=== PATIENT | male | born 1990 | race Caucasian/White ===

== ENCOUNTER 2018-05-16 02:11 | Emergency (ER) | payer OTHER ==
[2018-05-16] MEDS ORDERED: IBUPROFEN 800 MG TABLET PO STA (02:40)
[2018-05-16] MEDS ORDERED: ONDANSETRON ODT 4 MG TABLET TL STA (02:40)
--- NOTE | 2018-05-16 02:49 | ED Physician Documentation ---
PD HPI HEAD INJURY - Stated complaint Stated Complaint: HEAD INJURY - Chief complaint Chief Complaint: Heent - History obtained from History obtained from: Patient, Friend - History of Present Illness Mechanism of head injury: Fell Where head injury occurred: Other (ice skating) Timing - onset: How many hours ago (4) Pain level max: 8 Pain level now: 8 Location of injury: Back Quality of pain: Pain, Throbbing, Aching, Dull Associated symptoms: LOC (states doesn't think he lost consciousness), Nausea / vomiting (nausea, no vomiting). No: AMS, Amnesia, Neck pain, Paresthesias, Seizures, Ear drainage, Nasal drainage Symptoms improve with: Rest Symptoms worsen with: Palpation, Movement Contributing factors: No: Anticoagulated, Intoxicated Similar symptoms before: Has not had sx before Recently seen: Not recently seen Review of Systems Constitutional: denies: Fever, Chills GI: reports: Nausea. denies: Abdominal Pain, Vomiting Musculoskeletal: denies: Neck pain, Back pain Neurologic: reports: Headache. denies: Focal weakness, Numbness PD PAST MEDICAL HISTORY - Past Medical History Past Medical History: No - Past Surgical History Past Surgical History: No - Allergies Allergies/Adverse Reactions: Allergies Allergy/AdvReac Type Severity Reaction Status Date / Time No Known Drug Allergies Allergy Verified 05/16/18 02:23 - Social History Does the pt smoke?: No Smoking Status: Never smoker Does the pt drink ETOH?: No Does the pt have substance abuse?: No - Immunizations Immunizations are current?: Yes Immunizations: TDAP current <10years PD ED PE NORMAL - Vitals Vital signs reviewed: Yes - General General: Alert and oriented X 3, No acute distress, Well developed/nourished - HEENT HEENT: PERRL, Ears normal, Moist mucous membranes, Other (Abrasion to the occiput. Does have significant tenderness around the occiput. No palpable skull fractures. Small scalp hematoma) - Neck Neck: Supple, no meningeal sign, No bony TTP (No step-off or deformity) - Cardiac Cardiac: RRR, Strong equal pulses - Respiratory Respiratory: No respiratory distress, Clear bilaterally - Derm Derm: Warm and dry - Neuro Neuro: Alert and oriented X 3, java engineer 2-12 intact, No motor deficit, No sensory deficit, Normal speech Eye Opening: Spontaneous Motor: Obeys Commands Verbal: Oriented GCS Score: 15 - Psych Psych: Normal mood, Normal affect Results - Vitals Vitals: Vital Signs - 24 hr 05/16/18 05/16/18 02:20 04:50 Temperature 37.2 C Heart Rate 65 63 Respiratory 18 16 Rate Blood Pressure 135/80 H 122/68 O2 Saturation 100 100 Oxygen O2 Source Room air - Rads (name of study) Head CT Radiology: Prelim report reviewed, EMP read contemporaneously, See rad report (No acute abnormality) PD MEDICAL DECISION MAKING - ED course Complexity details: reviewed results, re-evaluated patient, considered differential, d/w patient ED course: Patient is a 27-year-old male who presents to the emergency department with a closed head injury. No acute findings on head CT. No palpable skull fracture. Appears to have a concussion however and will keep him out of work until his symptoms have resolved and he is released by his PCM. Abrasions were cleansed and bandaged. Patient and family counseled regarding signs and symptoms for which I believe and urgent re-evaluation would be necessary. Patient with good understanding of and agreement to plan and is comfortable going home at this time This document was made in part using voice recognition software. While efforts are made to proofread this document, sound alike and grammatical errors may occur. - Sepsis Event Vital Signs: Vital Signs - 24 hr 05/16/18 05/16/18 02:20 04:50 Temperature 37.2 C Heart Rate 65 63 Respiratory 18 16 Rate Blood Pressure 135/80 H 122/68 O2 Saturation 100 100 Oxygen O2 Source Room air Departure - Departure Disposition: 01 Home, Self Care Clinical Impression: Abrasion Head injury Qualifiers: Encounter type: initial encounter Qualified Code(s): S09.90XA - Unspecified injury of head, initial encounter Condition: Good Instructions: ED Head Injury Closed Follow-Up: your,doctor in 3 days. [Other] Comments: Return if you worsen. Your head CT is normal tonight. You may have headaches for the next several days[place] to work. Forms: Activity restrictions Discharge Date/Time: 05/16/18 04:55
--- NOTE | 2018-05-16 04:27 | CT Report ---
Reason: head injury, nausea Procedure Date: 05/16/2018 Accession Number: [id number] / [id number] Procedure: CT - Head W/O CPT Code: FULL RESULT: EXAM: CT HEAD EXAM DATE: 05/16/2018 03:32 AM. CLINICAL HISTORY: Head injury, nausea. COMPARISON: None. TECHNIQUE: Multiaxial CT images were obtained from the foramen magnum to the vertex. Reformats: Sagittal and coronal. IV contrast: None. In accordance with CT protocol optimization, one or more of the following dose reduction techniques were utilized for this exam: automated exposure control, adjustment of mA and/or KV based on patient size, or use of iterative reconstructive technique. FINDINGS: Parenchyma: No intraparenchymal hemorrhage. No evidence of mass, midline shift, or CT findings of infarction. Marina-white differentiation is distinct. Extraaxial Spaces: Normal for age. No subdural or epidural collections identified. Ventricles: Normal in size and position. Sinuses and Orbits: Imaged paranasal sinuses, orbits, and mastoids show no significant abnormality. Bones: No evidence of fracture or calvarial defect. Other: None. IMPRESSION: Normal head CT. RADIA
[2018-05-16] MEDS ORDERED: BACITRACIN OINT TOP ONE (04:36)
[2018-05-16 04:51] VITALS: BP 122/68
== END 2018-05-16 04:55 | disposition home or self-care (01) ==
LOC: ED 02:11
DX: S09.90XA Unspecified injury of head, initial encounter (principal); S00.01XA Abrasion of scalp, initial encounter; W18.30XA Fall on same level, unspecified, initial encounter; Y93.21 Activity, ice skating
CPT/HCPCS: 70450; 99283; A9270; Q0162

== ENCOUNTER 2019-08-07 14:00 | Emergency (ER) | payer OTHER ==
[2019-08-07 14:18] VITALS: BP 132/83
--- NOTE | 2019-08-07 15:06 | ED Physician Documentation ---
History of Present Illness - Stated complaint Stated Complaint: LT FINGER LAC - Chief complaint Chief Complaint: Laceration - History obtained from History obtained from: Patient - History of Present Illness Timing: Today Pain level max: 3 Pain level now: 3 - Additonal information Additional information: L middle finger laceration from kitchen knife. Better with pressure. Worse with movement. Tetanus is up-to-date. Patient is right-handed Review of Systems Constitutional: denies: Fever, Chills Neurologic: denies: Focal weakness PD PAST MEDICAL HISTORY - Past Medical History Past Medical History: No - Past Surgical History Past Surgical History: No - Present Medications Home Medications: Ambulatory Orders Medication Instructions Recorded Confirmed No Known Home Medications 08/07/19 08/07/19 - Allergies Allergies/Adverse Reactions: Allergies Allergy/AdvReac Type Severity Reaction Status Date / Time No Known Drug Allergies Allergy Verified 08/07/19 14:18 - Social History Does the pt smoke?: No Smoking Status: Never smoker Does the pt drink ETOH?: No Does the pt have substance abuse?: No - Immunizations Immunizations are current?: Yes Immunizations: TDAP current <10years PD ED PE NORMAL - Vitals Vital signs reviewed: Yes - General General: Alert and oriented X 3, No acute distress - Derm Derm: Warm and dry - Extremities Extremities: Other (Left middle finger -Distal phalanx, 1 cm laceration to the lateral aspect. The nail is not involved. Neurovascular intact.) - Neuro Neuro: Alert and oriented X 3 Results - Vitals Vitals: Vital Signs - 24 hr 08/07/19 14:14 Temperature 36.8 C Heart Rate 70 Respiratory 16 Rate Blood Pressure 132/83 H O2 Saturation 98 Oxygen O2 Source Room air Procedures - Laceration (location) Left middle finger Length in cm: 1 Wound type: Linear, Superficial, Clean Neurovascular status: Sensory intact, Motor intact, Vascular intact Tendon involvement: Tendon intact Wound Preparation: Irrigated copiously NS Skin layer closure: Dermabond, Other (T ring closure) Other: Patient tolerated well, No complications, Neurovascular intact, Tetanus UTD Complexity: Simple PD MEDICAL DECISION MAKING - ED course Complexity details: considered differential, d/w patient ED course: Laceration repaired. Tolerated well. Warnings of infection and instructions on wound care given at bedside. Also counseled on how to minimize scarring. Patient counseled regarding signs and symptoms for which I believe and urgent re-evaluation would be necessary. Patient with good understanding of and agreement to plan and is comfortable going home at this time This document was made in part using voice recognition software. While efforts are made to proofread this document, sound alike and grammatical errors may occur. Departure - Departure Disposition: 01 Home, Self Care Clinical Impression: Finger laceration Qualifiers: Encounter type: initial encounter Finger: middle finger Damage to nail status: without damage Foreign body presence: without foreign body Laterality: left Qualified Code(s): S61.213A - Laceration without foreign body of left middle finger without damage to nail, initial encounter Condition: Good Instructions: ED Laceration Ext Skin Glue Follow-Up: Your,doctor in 1 week if not better [Other] Comments: Return if you worsen including redness, swelling or drainage from the wound. Do not apply ointment as this will dissolve the glue. Discharge Date/Time: 08/07/19 15:24
== END 2019-08-07 15:24 | disposition home or self-care (01) ==
LOC: ED 14:00
DX: S61.213A Laceration without foreign body of left middle finger without damage to nail, initial encounter (principal); W26.0XXA Contact with knife, initial encounter; Y93.G1 Activity, food preparation and clean up
CPT/HCPCS: 12001; 99282

== ENCOUNTER 2019-08-12 23:03 | Emergency (ER) | payer OTHER ==
[2019-08-12 23:14] VITALS: BP 149/86
--- NOTE | 2019-08-12 23:54 | ED Physician Documentation ---
History of Present Illness - Stated complaint Stated Complaint: FINGER LAC - Chief complaint Chief Complaint: Laceration - History obtained from History obtained from: Patient - History of Present Illness Timing: Today Pain level now: 0 - Additonal information Additional information: sustained laceration to left third finger 5 days ago and repaired in this ED. tonight the glue/dressing fell off, and the area is discolored and wound appears open. Review of Systems Skin: reports: Laceration (s) Musculoskeletal: reports: Reviewed and negative PD PAST MEDICAL HISTORY - Past Medical History Past Medical History: No - Past Surgical History Past Surgical History: No - Present Medications Home Medications: Ambulatory Orders Medication Instructions Recorded Confirmed No Known Home Medications 08/07/19 08/12/19 - Allergies Allergies/Adverse Reactions: Allergies Allergy/AdvReac Type Severity Reaction Status Date / Time No Known Drug Allergies Allergy Verified 08/07/19 14:18 - Social History Does the pt smoke?: No Smoking Status: Never smoker Does the pt drink ETOH?: No Does the pt have substance abuse?: No - Immunizations Immunizations are current?: Yes Immunizations: TDAP current <10years PD ED PE NORMAL - Vitals Vital signs reviewed: Yes - General General: Alert and oriented X 3, No acute distress, Well developed/nourished - Derm Derm: No rash - Extremities Extremities: No edema - Neuro Neuro: No motor deficit, No sensory deficit PD ED PE EXPANDED - Extremities Extremities: Other (Left third finger: healing lac to lateral aspect over distal phalanx, extends up to lateral nail fold but does not involve nail or nail bed. The laceration edges are by 1 mm. The wound is surrounded by blanched, slightly macerated skin s/o prolonged exposure to moisture) Results - Vitals Vitals: Oxygen O2 Source Room air PD MEDICAL DECISION MAKING - ED course Complexity details: considered differential, d/w patient ED course: Steri-strips placed by tech and patient discharged. No evidence of infection. Departure - Departure Disposition: 01 Home, Self Care Clinical Impression: Visit for wound check Condition: Good Instructions: ED Sutr Check No Infec Forms: Activity restrictions Discharge Date/Time: 08/13/19 00:18
== END 2019-08-13 00:18 | disposition home or self-care (01) ==
LOC: ED 23:03
DX: S61.213A Laceration without foreign body of left middle finger without damage to nail, initial encounter (principal); W26.0XXA Contact with knife, initial encounter; Z51.89 Encounter for other specified aftercare
CPT/HCPCS: 99281; 99282